=== PATIENT | female | born 1980 | race Caucasian/White ===

== ENCOUNTER 2020-09-15 08:35 | Emergency (ER) | payer OTHER ==
[~2020-09-15 08:35] MED LIST: CYCLOBENZAPRINE10 MG PO; ETODOLAC500 MG PO
[2020-09-15 10:04] LABS: BILIRUBIN NEGATIVE (NEGATIVE); BLOOD 3+ Ery/uL (NEGATIVE); CLARITY HAZY (CLEAR); COLOR YELLOW (YELLOW); GLUCOSE (U) NORMAL (NORMAL); LEUKOCYTES 2+ Leu/uL (NEGATIVE); NITRITE NEGATIVE (NEGATIVE); PROTEIN 1+ mg/dL (NEGATIVE); SPECIFIC GRAVITY >=1.030 (1.001-1.030); UROBILINOGEN 0.2 mg/dL (0.2-1.0); pH 5.5 (5.0-9.0)
[2020-09-15 10:17] LABS: URINARY RBC TNTC; URINARY WBC TNTC
[2020-09-15 10:18] LABS: BACTERIA 1+
[2020-09-15] MEDS ORDERED: ZOFRAN4 M1 PO (10:37)
[2020-09-15] MEDS ORDERED: PYRIDIUM200 MG PO (10:37)
[2020-09-15] MEDS ORDERED: BACTRIM DS TAB1 EACH PO (10:37)
== END 2020-09-15 10:52 | disposition home or self-care (01) ==
LOC: FER 08:35
PROVIDERS: Emergency Medicine
DX: N30.90 Cystitis, unspecified without hematuria (principal); J45.909 Unspecified asthma, uncomplicated
CPT/HCPCS: 81001; 87088; 99284